=== PATIENT | female | born 1990 | race Caucasian/White ===

== ENCOUNTER 2019-01-10 23:35 | Inpatient (IN) | payer OTHER ==
[2019-01-11] MEDS ORDERED: AMPICILLIN - 2 GM in SODIUM CHLORIDE 100 ML IVPB ONE ×2 (00:30→12:30)
[2019-01-11] MEDS ORDERED: AMPICILLIN SODIUM 2 GM VIAL ONE (00:44)
[2019-01-11 00:56] LABS: BASO % 0.3 % (0-2.0); EOS % 0.8 % (0-4.5); HEMOGLOBIN 11.8 GM/dL (10.7-15.3); LYMPH % 15.5 % (8-40); MCHC 32.7 g/dl (32.0-36.0); MEAN CELL VOLUME 85.7 fl (80-96); MEAN PLT VOLUME 8.5 fl (7.5-11.1); NEUT % 77.4 % (42.8-82.8); PLATELET COUNT 270 K/MM3 (134-434); RDW 14.8 % (11.6-15.6); WHITE BLOOD COUNT 13.7 K/mm3 (4.0-10.0)
[2019-01-11 01:10] LABS: PROTHROMBIN TIME (PATIENT) 11.8 SEC (9.7-13.0)
[2019-01-11 01:12] LABS: ACTIVATED PTT 27.1 SECONDS (25.2-36.5)
[2019-01-11 01:20] LABS: CALCIUM 8.6 mg/dL (8.5-10.1); CREATININE 0.5 mg/dL (0.55-1.3); POTASSIUM 3.6 mmol/L (3.5-5.1)
[2019-01-11 02:14] VITALS: BMI 31.6
[2019-01-11] MEDS ORDERED: AMPICILLIN SODIUM 1 GM VIAL ONE ×5 (03:43→20:39)
[2019-01-11] MEDS ORDERED: DEXTROSE 5%-LACTATED RINGERS 1,000 ML IV SCH ×2 (04:15→05:15)
[2019-01-11] MEDS: AMPICILLIN - 1 GM in SODIUM CHLORIDE 100 ML IVPB SCH ×5 (04:30→20:45)
--- NOTE | 2019-01-11 05:12 | HP ---
Past Medical History - Admission Chief Complaint: Rupture of membrane History of Present Illness: 28 yo @ 35.4 weeks gestation, EDC 02/09/19, presents to L&D c/o rupture of membrane. Upon admission theres was evidence of gross pooling and cervix was 1-2cm dilated. History Source: Patient Limitations to Obtaining History: No Limitations - Past Medical History ...: 2 ...Para: 1 ...Term: 1 ...: 0 ...Spon : 0 ...Induced : 0 ...Multiple Gestation: 0 ...LMP: 05/03/18 ... Weeks Gestation by Dates: 35.7 ...EDC by Dates: 02/07/19 ...EDC by Sono: 02/09/19 - Past Surgical History Past Surgical History: Yes: None Hx Myomectomy: No Hx Transabdominal Cerclage: No - Smoking History Smoking history: Never smoked - Alcohol/Substance Use Hx Alcohol Use: No History of Substance Use: reports: None - Social History History of Recent Travel: No Home Medications - Allergies Allergies/Adverse Reactions: Allergies Allergy/AdvReac Type Severity Reaction Status Date / Time No Known Allergies Allergy Verified 01/11/19 01:53 Family Disease History - Family Disease History Family History: Unremarkable Review of Systems - Review of Systems Constitutional: reports: No Symptoms Eyes: reports: No Symptoms HENT: reports: No Symptoms Neck: reports: No Symptoms Cardiovascular: reports: No Symptoms Respiratory: reports: No Symptoms Gastrointestinal: reports: No Symptoms Genitourinary: reports: Other (Leaking fluid) Breasts: reports: No Symptoms Reported Musculoskeletal: reports: No Symptoms Neurological: reports: No Symptoms Psychiatric: reports: No Symptoms Pain Intensity: 2 Physical Exam - Maternity Vital Signs: Vital Signs Temperature 98.5 F 01/11/19 04:00 Pulse Rate 72 01/11/19 04:00 Respiratory Rate 18 01/11/19 04:00 Blood Pressure 109/59 L 01/11/19 04:00 O2 Sat by Pulse Oximetry (%) Constitutional: Yes: Well Nourished Eyes: Yes: Conjunctiva Clear HENT: Yes: Atraumatic Neck: Yes: Supple Cardiovascular: Yes: Regular Rate and Rhythm Lungs: Clear to auscultation Breast(s): Yes: WNL - Abdominal Exam/OB Number of Fetuses: Single Presentation: Vertex - Vaginal Exam/OB Vaginal Bleediing: No Speculum Exam: No Dilatation (cm): 2 Effacement (%): 80 Amniotic Membrane Status: Ruptured Nitrazine Test: Positive Amniotic Fluid: Yes: Clear Presentation: Vertex/Position Station: -1 - Physical Exam Musculoskeletal: Yes: WNL Extremities: Yes: WNL ...Motor Strength: WNL Psychiatric: Yes: Alert, Oriented - Labs Lab Results: CBC, BMP 01/11/19 00:14 01/11/19 00:14 Problem List - Problems (1) premature rupture of membranes (PPROM) with onset of labor after 24 hours of rupture in third trimester, antepartum Code(s): O42.113 - PRETRM MIGUELITO ROM, ONSET LABOR > 24 HOURS FOL RUPT, THIRD TRI (2) 35 to 36 weeks gestation of Code(s): RQD2794 - Assessment/Plan 35 weeks gestation PPROM Admit to L&D IVF Ampicillin Continue close monitoring
[2019-01-11] MEDS ORDERED: FENTANYL/BUPIVACAINE/NS/PF - PCEA - 50 ML DISP.SYRIN EP ONE ×4 (09:58→23:18)
[2019-01-11] MEDS ORDERED: ELECTROLYTE-148 SOLN 500 ML IV ONE (10:00)
[2019-01-11] MEDS ORDERED: FENTANYL/BUPIVACAINE/NS/PF - PCEA - 50 ML DISP.SYRIN EP SCH ×2 (10:45→10:54)
[2019-01-11] MEDS: ELECTROLYTE-148 SOLN 1,000 ML IV SCH ×2 (11:00→15:00)
[2019-01-11] MEDS ORDERED: TUBERCULIN PPD 5 TU/0.1ML SYRINGE (IN PATIENT USE ONLY) ID ONE (18:15)
[2019-01-11] MEDS ORDERED: OXYTOCIN 30 UNITS in 0.9% NS 30 UNIT/500 ML INFUS.BAG IVPB ONE (19:20)
[2019-01-11] MEDS: OXYTOCIN 30 UNITS in 0.9% NS 30 UNIT/500 ML INFUS.BAG IVPB SCH (19:25)
[2019-01-11] MEDS ORDERED: BENZOCAINE 20% 57 GM BOTTLE TP PRN (20:16)
[2019-01-11] MEDS ORDERED: BENZOCAINE 28 GM HEMORRHOIDAL OINTMENT PR PRN (20:16)
[2019-01-11] MEDS ORDERED: WITCH HAZEL 50% (TUCKS) 40 PAD/JAR PAD TP PRN (20:16)
[2019-01-11] MEDS ORDERED: BISACODYL 10 MG SUPP.RECT PR PRN (20:16)
[2019-01-11] MEDS ORDERED: METHYLERGONOVINE MALEATE 0.2 MG/1 ML AMP IM PRN (20:16)
--- NOTE | 2019-01-11 20:16 | PN ---
Ante-Partal Exam - Subjective Subjective: Pt without complaints Vital Signs: Vital Signs Temperature 98.5 F 01/11/19 16:00 Pulse Rate 76 01/11/19 19:30 Respiratory Rate 20 01/11/19 19:30 Blood Pressure 117/67 01/11/19 19:30 O2 Sat by Pulse Oximetry (%) 100 01/11/19 19:30 Bleeding: No Headache: No Visual changes: No Right upper quadrant pain: No - Contractions Contractions: No Regularity: Irritability Intensity: Mild Monitor Mode: External - Exam during Labor Heart Rate: 130 Variability: Moderate Heart Rate Location: [facility] Category: I Monitor Decelerations: None Exam: Vaginal Dilatation (cm): 4 Amniotic Membrane Status: Ruptured Amniotic Fluid: Clear Presentation: Vertex Station: +1 - Intrapartum Hemorrhage Risk Risk Score: 0 Risk Level: Low Risk - Assessment/Plan Assessment/Plan: 35 week premature rupture of memebranes GBS positive Plan Pitocin augmentation
[2019-01-11] MEDS ORDERED: BUPIVACAINE HCL/PF 0.25% (2.5MG/ML) 10 ML VIAL ONE (21:30)
[2019-01-11] MEDS ORDERED: OXYTOCIN 20 UNITS in 0.9% NS 20 UNIT/1,000 ML INFUS.BAG IV ONE (23:46)
[2019-01-12] MEDS: OXYTOCIN 20 UNITS in 0.9% NS 20 UNIT/1,000 ML INFUS.BAG IV SCH (00:20)
[2019-01-12] MEDS ORDERED: IBUPROFEN 600 MG TABLET (FP) PO ONE (00:36)
[2019-01-12] MEDS ORDERED: oxyCODONE HCL 5 MG TABLET ONE (00:36)
[2019-01-12 00:40] LABS: VENOUS PC02 40.4 mmHg (41-51); VENOUS PH 7.34 (7.31-7.41); VENOUS PO2 30.6 mmHg (30-40)
[2019-01-12] MEDS: IBUPROFEN 600 MG TABLET (FP) PO PRN ×3 (00:40→19:37)
[2019-01-12 00:42] LABS: ARTERIAL BLD GAS O2 SATURATION 61.5 % (95-98); ARTERIAL BLOOD GAS BASE EXCESS -4.2 meq/l (-2-2); ARTERIAL BLOOD GAS PCO2 46.1 mmHg (35-45)
[2019-01-12 00:47] LABS: ARTERIAL BLOOD GAS PO2 29.8 mmHg (80-105)
--- NOTE | 2019-01-12 00:49 | PN ---
Delivery - Delivery Vaginal Delivery: No Problems (1st degree repaired with 2-0 chromic suture) Type of Anesthesia: Epidural Episiotomy/Laceration: 1st degree EBL (cc): 350 Delivery, Single - Stages of Labor Placenta: Yes: Spontaneous - Condition of Control Clerk/Assistant Athletic Trainer Present: Yes Infant Gender: Female Position: OA - [place] Feeding Plan Initial Plan: Exclusive throughout hospitalization
[2019-01-12] MEDS ORDERED: ACETAMINOPHEN 325 MG TABLET (FP) PO ONE (01:30)
[2019-01-12] MEDS ORDERED: oxyCODONE HCL 5 MG TABLET PO ONE (01:30)
[2019-01-12] MEDS: AMPICILLIN - 1 GM in SODIUM CHLORIDE 100 ML IVPB SCH (01:42)
[2019-01-12] MEDS ORDERED: OXYTOCIN 20 UNITS in 0.9% NS 20 UNIT/1,000 ML INFUS.BAG IV ONE (01:48)
[2019-01-12 05:13] LABS: HBsAG SCREEN Negative (Negative)
[2019-01-12 07:13] LABS: RUBELLA IgG ANTIBODY 2.59 index (Immune >0.99)
[2019-01-12 07:43] LABS: BASO % 0.4 % (0-2.0); EOS % 0.4 % (0-4.5); HEMATOCRIT 33.9 % (32.4-45.2); HEMOGLOBIN 10.9 GM/dL (10.7-15.3); LYMPH % 15.8 % (8-40); MCH 27.7 pg (25.7-33.7); MCHC 32.3 g/dl (32.0-36.0); MEAN CELL VOLUME 85.8 fl (80-96); MEAN PLT VOLUME 8.2 fl (7.5-11.1); MONO % 5.1 % (3.8-10.2); NEUT % 78.3 % (42.8-82.8); PLATELET COUNT 244 K/MM3 (134-434); RBC 3.95 M/mm3 (3.60-5.2); RDW 15.3 % (11.6-15.6); WHITE BLOOD COUNT 13.6 K/mm3 (4.0-10.0)
[2019-01-12] MEDS: ACETAMINOPHEN 325 MG TABLET (FP) PO PRN ×2 (08:00→19:36)
--- NOTE | 2019-01-13 06:19 | PN ---
Post Progress Note - Subjective Subjective: Pt doing well, ambulating, voiding, passing flatus. VB minimal. C/O left gluteal pain, feels as though her "muscle is in spasm." No other issues/ concerns. Type of Delivery: Vital Signs: Vital Signs Temperature 98.3 F 01/12/19 21:02 Pulse Rate 72 01/12/19 21:02 Respiratory Rate 20 01/12/19 21:02 Blood Pressure 126/74 01/12/19 21:02 O2 Sat by Pulse Oximetry (%) 100 01/11/19 23:45 Uterus: Yes: Fundus Firm Abdomen/GI: Yes: Abdomen soft Lochia: Yes: Rubra Lochia, amount: Small Extremities: Yes: Calves non-tender Activity: Ambulating - Labs Labs: CBC WBC 13.6 K/mm3 (4.0-10.0) H 01/12/19 07:13 RBC 3.95 M/mm3 (3.60-5.2) 01/12/19 07:13 Hgb 10.9 GM/dL (10.7-15.3) 01/12/19 07:13 Hct 33.9 % (32.4-45.2) 01/12/19 07:13 MCV 85.8 fl (80-96) 01/12/19 07:13 MCH 27.7 pg (25.7-33.7) 01/12/19 07:13 MCHC 32.3 g/dl (32.0-36.0) 01/12/19 07:13 RDW 15.3 % (11.6-15.6) 01/12/19 07:13 Plt Count 244 K/MM3 (134-434) 01/12/19 07:13 MPV 8.2 fl (7.5-11.1) 01/12/19 07:13 Absolute Neuts (auto) 10.7 K/mm3 (1.5-8.0) H 01/12/19 07:13 Neutrophils % 78.3 % (42.8-82.8) 01/12/19 07:13 Lymphocytes % 15.8 % (8-40) 01/12/19 07:13 Monocytes % 5.1 % (3.8-10.2) 01/12/19 07:13 Eosinophils % 0.4 % (0-4.5) 01/12/19 07:13 Basophils % 0.4 % (0-2.0) 01/12/19 07:13 Nucleated RBC % 0 % (0-0) 01/12/19 07:13 Problem List - Problems (1) Vaginal delivery Code(s): O80 - ENCOUNTER FOR FULL-TERM UNCOMPLICATED DELIVERY Assessment/Plan PPD#1 s/p normal regular diet PO pain meds encourage ambulation routine care
[2019-01-13] MEDS: IBUPROFEN 600 MG TABLET (FP) PO PRN ×3 (09:17→22:08)
[2019-01-13] MEDS: ACETAMINOPHEN 325 MG TABLET (FP) PO PRN ×3 (09:20→22:08)
[2019-01-13] MEDS: OXYTOCIN 30 UNITS in 0.9% NS 30 UNIT/500 ML INFUS.BAG IVPB SCH (19:48)
[2019-01-13] MEDS: OXYTOCIN 20 UNITS in 0.9% NS 20 UNIT/1,000 ML INFUS.BAG IV SCH (19:48)
[2019-01-13] MEDS: ELECTROLYTE-148 SOLN 1,000 ML IV SCH (19:49)
[2019-01-13] MEDS ORDERED: valACYclovir HCL 1000 MG TABLET PO SCH (22:00)
[2019-01-13] MEDS ORDERED: valACYclovir HCL 500 MG TABLET (FP) PO SCH (23:51)
--- NOTE | 2019-01-14 02:19 | DS ---
Physical Exam-REFERRAL MANAGEMENT LIAISON Vital Signs: Vital Signs Temperature 99.0 F 01/13/19 21:46 Pulse Rate 69 01/13/19 21:46 Respiratory Rate 18 01/13/19 21:46 Blood Pressure 124/61 01/13/19 21:46 O2 Sat by Pulse Oximetry (%) 100 01/11/19 23:45 Constitutional: Yes: Well Nourished Eyes: Yes: Conjunctiva Clear HENT: Yes: Atraumatic Neck: Yes: Supple Cardiovascular: Yes: Regular Rate and Rhythm Respiratory: Yes: Regular Gastrointestinal: Yes: Normal Bowel Sounds ...Rectal Exam: Yes: WNL Renal/: Yes: WNL Pelvis: Yes: WNL External Genitalia: Yes: Normal Vaginal Exam: Yes: Normal Cervix: Yes: Normal Uterus: Yes: Firm ....Post : Yes: Uterus firm, Moderate lochia serosa Breast(s): Yes: WNL Musculoskeletal: Yes: WNL Extremities: Yes: WNL Integumentary: Yes: WNL Neurological: Yes: Alert, Oriented ...Motor Strength: WNL Psychiatric: Yes: Alert, Oriented Labs: CBC, BMP 01/12/19 07:13 01/11/19 00:14 Delivery - Delivery Vaginal Delivery: No Problems (1st degree repaired with 2-0 chromic suture) Type of Anesthesia: Epidural Episiotomy/Laceration: 1st degree EBL (cc): 350 Delivery, Single - Stages of Labor Date 1st Stage Initiatied: 01/11/19 Time 1st Stage Initiated: 06:00 Date 2nd Stage Initiated: 01/12/19 Time 2nd Stage Initiated: 23:50 Date of Delivery: 01/12/19 Time of Delivery: 00:15 Time Placenta Delivered: 00:20 Placenta: Yes: Spontaneous - Condition of Special Education Assistant/Cleat Feeder Present: Yes Name: Manuel Robert Gender: Female Weight: 5 lb 12 oz Position: OA Total Hours ROM (Hrs/Mins): 25hrs 50min - 1 Minute Total Score: 9 5 Minutes Total Score: 9 - [place] Feeding Plan Initial Plan: Exclusive throughout hospitalization Discharge Summary Reason For Visit: ADMIT Current Active Problems 35 to 36 weeks gestation of (Acute) premature rupture of membranes (PPROM) with onset of labor after 24 hours of rupture in third trimester, antepartum (Acute) Vaginal delivery (Acute) Procedures: Principal: Normal spontaneous vaginal delivery Hospital Course: Routine care Condition: Good - Instructions Diet, Activity, Other Instructions: Physical activity Resume your normal everyday activity as tolerated no heavy lifting or exercise until seen by your surgeon. You may walk unlimited janae of and climb stairs. You may resume driving the car when you feel safe and comfortable behind the wheel. No sexual activity as instructed. Wound care If you have a bandage, leave it on, and keep dry for 48-72 hours. After that time discard the outer bandage. If they are tapes on the skin under the out of bandage leave them in place. They will peel off in the next 7 to 10 days. Do Not Peel them off. You may shower the day after surgery. If there are tapes present on the skin, you may shower over them. Diet There are no dietary restrictions. Eat healthy, high-fiber foods. Drink 6 to 8 glasses of liquid each day. This will assist in keeping your bowels are regular. Pain management You may take Tylenol or acetaminophen or Ibuprofen (for example, Motrin, Advil etc.) from my pain prescription medication is ordered should be taken as prescribed for moderate to severe pain. Call MD for any of the following: Severe pain not relieved by medication Fever of 101 or higher Excessive bleeding or drainage on dressing Inability to urinate Referrals: Mallory Hernandez MD [Staff Physician] - Disposition: HOME - Home Medications Comprehensive Discharge Medication List: Ambulatory Orders Vits96/Iron Fum/Folic [ Tablet] 1 tab PO DAILY 01/11/19 Ibuprofen [Motrin -] 600 mg PO TID #21 tablet 01/12/19
[2019-01-14] MEDS: ACETAMINOPHEN 325 MG TABLET (FP) PO PRN (08:09)
[2019-01-14] MEDS: IBUPROFEN 600 MG TABLET (FP) PO PRN (08:10)
[2019-01-14 08:54] VITALS: BP 123/70; PULSE 67; TEMP 98.9
== END 2019-01-14 14:50 | disposition home or self-care (01) | DRG 805 ==
LOC: JLDR 23:35 → J3W 01-12 02:42
PROVIDERS: ADMIT Obstetrics & Gynecology; ATTEND Obstetrics & Gynecology
PROC: 10E0XZZ Delivery of Products of Conception, External Approach (ICD-10-PCS; principal; 2019-01-10)
PROC: 0HQ9XZZ Repair Perineum Skin, External Approach (ICD-10-PCS; 2019-01-10)
PROC: 3E0R3BZ Introduction of Anesthetic Agent into Spinal Canal, Percutaneous Approach (ICD-10-PCS; 2019-01-10)
DX: O42.013 Preterm premature rupture of membranes, onset of labor within 24 hours of rupture, third trimester (principal); O60.13X0 Preterm labor second trimester with preterm delivery third trimester, not applicable or unspecified; Z37.0 Single live birth; O70.0 First degree perineal laceration during delivery; O99.824 Streptococcus B carrier state complicating childbirth; Z3A.35 35 weeks gestation of pregnancy
CPT/HCPCS: 36415; 36600; 59409; 80048; 82803; 85025; 85610; 85730; 86593; 86762; 86850; 86900; 86901; 87340; 87389

== ENCOUNTER 2019-05-25 05:04 | Day surgery (SDC) | payer OTHER ==
[2019-05-23 17:22] VITALS: BMI 27.4
[2019-05-25] MEDS ORDERED: IBUPROFEN 800 MG/8 ML IJ IVPB PRN (10:30)
[2019-05-25] MEDS ORDERED: ACETAMINOPHEN 325 MG TABLET (FP) PO PRN (10:30)
--- NOTE | 2019-05-25 11:02 | EKG ---
Test Reason : Blood Pressure : / mmHG Vent. Rate : 065 BPM Atrial Rate : 065 BPM P-R Int : 174 ms QRS Dur : 086 ms QT Int : 410 ms P-R-T Axes : 050 043 033 degrees QTc Int : 426 ms NORMAL SINUS RHYTHM NORMAL ECG WHEN COMPARED WITH ECG OF 09-OCT-2010 16:35, NO SIGNIFICANT CHANGE WAS FOUND Confirmed by ABDOULAYE ACOSTA MD ([id number]) on 05/25/2019 11:02:09 AM Referred By: Mallory Hernandez Confirmed By:ABDOULAYE ACOSTA MD
[2019-05-25] MEDS ORDERED: ONDANSETRON 4 MG/2 ML VIAL IVPUSH PRN (12:26)
--- NOTE | 2019-05-25 12:29 | HP ---
Admitting History and Physical - Admission Chief Complaint: abnormal bleeding, retained POC History of Present Illness: 29 y/o female who is several months s/p normal vaginal delivery was seen in the office with complaints of abnormal uterine bleeding. Upon ultrasound examination retained products of conception were suspected. Pt is without pain/ fever. Pt attempted trial of cytotec which failed. Pt was counseled on options and elected to undergo D&C procedure. History Source: Patient, Medical Record Limitations to Obtaining History: No Limitations - Past Medical History Cardiovascular: No: HTN Gastrointestinal: No: GERD Hepatobiliary: No: Hepatitis B, Hepatitis C Renal/: No: UTI Reproductive: No: Endometriosis, Fibroids, PID ...LMP Comment: childbirth 01/12/19 ...: No Psych: No: Anxiety, Bipolar, Depression - Past Surgical History Past Surgical History: Yes: None - Smoking History Smoking history: Never smoked Have you smoked in the past 12 months: No - Alcohol/Substance Use Hx Alcohol Use: Yes (occas) History of Substance Use: reports: None - Social History Usual Living Arrangement: Yes: With Significant Other ADL: Independent History of Recent Travel: No Home Medications - Allergies Allergies/Adverse Reactions: Allergies Allergy/AdvReac Type Severity Reaction Status Date / Time No Known Allergies Allergy Verified 05/23/19 17:25 - Home Medications Home Medications: Ambulatory Orders Vits96/Iron Fum/Folic [ Tablet] 1 tab PO DAILY 01/11/19 Review of Systems - Review of Systems Constitutional: reports: No Symptoms Eyes: reports: No Symptoms HENT: reports: No Symptoms Neck: reports: No Symptoms Cardiovascular: reports: No Symptoms Respiratory: reports: No Symptoms Gastrointestinal: reports: No Symptoms Genitourinary: reports: Vaginal Bleeding Breasts: reports: No Symptoms Reported Musculoskeletal: reports: No Symptoms Integumentary: reports: No Symptoms Neurological: reports: No Symptoms Endocrine: reports: No Symptoms Hematology/Lymphatic: reports: No Symptoms Psychiatric: reports: No Symptoms Physical Examination Vital Signs: Vital Signs Temperature 98.4 F 05/25/19 11:00 Pulse Rate 62 05/25/19 11:00 Respiratory Rate 20 05/25/19 11:00 Blood Pressure 116/71 05/25/19 11:00 O2 Sat by Pulse Oximetry (%) 99 05/25/19 11:00 Constitutional: Yes: Well Nourished, No Distress, Calm Eyes: Yes: Conjunctiva Clear HENT: Yes: Atraumatic, Normocephalic Neck: Yes: Trachea Midline Respiratory: Yes: Regular Gastrointestinal: Yes: Normal Bowel Sounds, Soft Renal/: Yes: Vaginal Bleeding Extremities: Yes: WNL Edema: No Neurological: Yes: Alert, Oriented Psychiatric: Yes: Alert, Oriented Problem List - Problems (1) Retained products of conception Code(s): IFQ5411 - Assessment/Plan Plan for suction D&C r/b/a discussed, pt already filed cytotec risks including bleeding/infection/damage to surrounding structures/cramping/ bleeding/need to repeat procedure pt aware f/u 2 weeks post op NPO Teds
[2019-05-25] MEDS ORDERED: LACTATED RINGERS SOLUTION 1,000 ML IV SCH (12:30)
[2019-05-25] MEDS ORDERED: PROPOFOL 20 ML ONE (12:34)
[2019-05-25] MEDS ORDERED: MIDAZOLAM HCL 2 MG/2 ML SINGLE DOSE VIAL ONE (12:34)
--- NOTE | 2019-05-25 13:10 | OP ---
Operative Note - Note: Operative Date: 05/25/19 (dictation [id number]) Pre-Operative Diagnosis: retained POC, AUB Operation: suction D&C Post-Operative Diagnosis: Same as Pre-op Surgeon: Yvette Ash Anesthesiologist/CREW CHIEF: Arianne Pedroza Anesthesia: MAC Specimens Removed: endometrial curettings, retained POC Estimated Blood Loss (mls): 5 Operative Report Dictated: Yes
[2019-05-25 17:02] VITALS: BP 119/73; PULSE 67; TEMP 97.8
--- NOTE | 2019-05-27 17:18 | PATH ---
Surgical Pathology Report Patient Name: KELLE EDDY [facility]. Rec. #: [id number] /Age/Gender: 1990 (Age: 29) / F Account: [id number] Location: [facility] SURGICAL Taken: 05/25/2019 Received: 05/26/2019 Reported: 05/27/2019 Physicians: Mallory Hernandez M.D. Specimen(s) Received PRODUCTS OF CONCEPTION Clinical History Remained products of conception Final Diagnosis RETAINED PRODUCTS OF CONCEPTION, SUCTION DILATION AND CURETTAGE: MARKEDLY DEGENERATED PLACENTAL TISSUE WITH FIBROSIS AND ASSOCIATED DYSTROPHIC CALCIFICATIONS CONSISTENT WITH RETAINED PRODUCTS OF CONCEPTION. CHRONIC ENDOMETRITIS AND BENIGN CERVICAL TISSUE. Electronically Signed Rosamaria Potter M.D. Gross Description Received in formalin labeled "retained products of conception," is a 4.0 x 3.0 x 0.2 cm aggregate of cali-brown soft tissue fragments. No definite villous/placental tissue is identified. The formalin is filtered and entirely submitted in 2 cassettes. /05/26/2019 saudi/05/26/2019
--- NOTE | 2019-05-30 15:54 | OP ---
DATE OF OPERATION: 05/25/2019 PREOPERATIVE DIAGNOSES: Abnormal uterine bleeding, retained products of conception. POSTOPERATIVE DIAGNOSES: Abnormal uterine bleeding, retained products of conception. PROCEDURE: Suction dilation and curettage. SURGEON: Yvette Ash MD RECREATION LEADER: None. ANESTHESIA: MAC anesthesia by Dr. Arianne Pedroza ESTIMATED BLOOD LOSS: 5 mL. SPECIMENS REMOVED: Products of conception and endometrial curettings. COMPLICATIONS: None. COUNTS: Sponge, needle and instrument count correct. DISPOSITION: Stable to PACU. BRIEF HISTORY AND PROCEDURE: The patient is a 29-year-old female who was seen in the office after delivering her baby in January 2019, with complaints of on and off abnormal uterine bleeding. Upon ultrasound examination, she was found to have what was concern for retained products of conception. The patient was counseled on her options and elected to undergo a suction D&C procedure. The patient signed consents for the procedure on May 24, 2019, and they were reconfirmed upon admission on May 25, 2019. She was taken back to the operating room, placed in the dorsal lithotomy position, given MAC anesthesia, prepped and draped in the usual sterile fashion. A hard timeout was performed. A speculum was placed inside the vagina. The anterior lip of the cervix was easily visualized and grasped with a tenaculum. The cervix was dilated to accommodate a size 8 suction curette, which was advanced to the fundus of the uterus. Several passes with the suction curette were taken. Sharp curettage in all 4 medrano of the uterus, using a sharp curette until adequate uterine cry was appreciated, was also completed, and then 1 final pass with the suction curette was completed. All specimens were sent to Pathology for permanent evaluation. All instruments were removed from the vagina. Minimal bleeding was noted from the cervix. The patient was awoken up from anesthesia and in recover in stable condition, in PACU at the time of this dictation. YVETTE ASH DO /[id number]
== END 2019-05-25 15:15 | disposition home or self-care (01) ==
LOC: JASU-SURG 05:04
PROVIDERS: ATTEND Obstetrics & Gynecology
PROC: 10D17ZZ Extraction of Products of Conception, Retained, Via Natural or Artificial Opening (ICD-10-PCS; principal; 2019-05-25 11:30)
DX: O73.1 Retained portions of placenta and membranes, without hemorrhage (principal); N93.9 Abnormal uterine and vaginal bleeding, unspecified
CPT/HCPCS: 88305-TC; 93005; 93010; 94760

== ENCOUNTER 2024-10-24 05:28 | Day surgery (SDC) | payer OTHER ==
[2024-10-20 09:59] VITALS: BMI 29.7
[2024-10-24] MEDS ORDERED: ACETAMINOPHEN 325 MG TABLET (FP) PO PRN (10:04)
[2024-10-24] MEDS ORDERED: oxyCODONE HCL 5 MG TABLET PO PRN ×2 (10:04→14:31)
[2024-10-24] MEDS ORDERED: IBUPROFEN 400 MG TABLET (FP) PO PRN (10:04)
[2024-10-24] MEDS ORDERED: SUCCINYLCHOLINE CHLORIDE 200 MG/10 ML SYRINGE ONE (13:37)
[2024-10-24] MEDS ORDERED: PROPOFOL 40 ML ONE (13:37)
[2024-10-24] MEDS ORDERED: MIDAZOLAM HCL 2 MG/2 ML SINGLE DOSE VIAL ONE (13:37)
[2024-10-24] MEDS ORDERED: ONDANSETRON 4 MG/2 ML VIAL IVPUSH PRN (14:31)
[2024-10-24 16:10] VITALS: PULSE 54; RESP 18
[2024-10-24 17:16] VITALS: BP 121/75; TEMP 97.7
== END 2024-10-24 16:50 | disposition home or self-care (01) ==
LOC: JASU-SURG 05:28
PROVIDERS: ATTEND Obstetrics & Gynecology
PROC: 0UDB8ZZ Extraction of Endometrium, Via Natural or Artificial Opening Endoscopic (ICD-10-PCS; principal; 2024-10-24 13:00)
PROC: 0UN98ZZ Release Uterus, Via Natural or Artificial Opening Endoscopic (ICD-10-PCS; 2024-10-24 13:00)
DX: N84.0 Polyp of corpus uteri (principal); N73.6 Female pelvic peritoneal adhesions (postinfective); Z30.432 Encounter for removal of intrauterine contraceptive device
CPT/HCPCS: 81025; 88300-TC; 88305-TC; 94760